=== PATIENT | female | born 1970 | race American Indian/Alaskan Native ===

== ENCOUNTER 2016-05-26 13:21 | Inpatient (IN) | payer OTHER ==
[2016-05-26] MEDS ORDERED: NACL 0.9% 500 ML 500 ML IV ONE (13:46)
[2016-05-26 14:11] LABS: Basophils % (Auto) 0.2 % (0.0-1.8); Hematocrit 40.5 % (30.3-42.9); Hemoglobin 13.1 gm/dl (10.1-14.3); Mean Corpuscular HGB Conc 32 % (30-34); Mean Corpuscular Hemoglobin 26 pg (28-32); Mean Corpuscular Volume 80 fl (79-97); Platelet Count 247 K/mm3 (140-440); Red Blood Count 5.05 M/mm3 (3.65-5.03); Red Cell Distribution Width 15.4 % (13.2-15.2); White Blood Count 12.1 K/mm3 (4.5-11.0)
[2016-05-26 14:21] LABS: INR 1.22 (0.87-1.13)
[2016-05-26 14:37] LABS: Alanine Aminotransferase 13 units/L (7-56); Albumin 3.7 g/dL (3.9-5); Albumin/Globulin Ratio 0.9 %; Alkaline Phosphatase 58 units/L (35-129); Anion Gap 21 mmol/L; BUN/Creatinine Ratio 14.44; Bilirubin,Total 1.4 mg/dL (0.1-1.2); Blood Urea Nitrogen 13 mg/dL (7-17); Calcium 9.3 mg/dL (8.4-10.2); Carbon Dioxide 20 mmol/L (22-30); Chloride 97.9 mmol/L (98-107); Glucose 123 mg/dL (65-100); Potassium 3.6 mmol/L (3.6-5.0); Sodium 135 mmol/L (137-145); Total Protein 7.9 g/dL (6.3-8.2)
[2016-05-26 14:55] LABS: Bacteria,Urine 2+ /HPF (Negative); Bilirubin,Urine NEG (Negative); Blood,Urine SM (Negative); Ketones,Urine 20 mg/dL (Negative); Leukocyte Esterase,Urine TR (Negative); Mucus,Urine 3+ /HPF; Nitrite,Urine NEG (Negative); Urobilinogen,Urine < 2.0 mg/dL (<2.0)
--- NOTE | 2016-05-26 16:06 | XRay Report ---
PORTABLE CHEST INDICATION: Possible sepsis. COMPARISON: 01/09/2012 FINDINGS: Portable, frontal chest radiograph demonstrates limited inspiration with bibasilar horizontal atelectasis. Grossly normal cardiomediastinal silhouette. No large pleural effusions or CHF. Unremarkable bones. CONCLUSION: Hypoinflation and new bibasilar atelectasis. Thank you for the opportunity to participate in this patient's care.
[2016-05-26] MEDS ORDERED: NACL 0.9% 1000 ML 1,000 ML IV ONE ×2 (16:52→22:41)
[2016-05-26] MEDS ORDERED: TYLENOL PO ONE (16:52)
[2016-05-26] MEDS ORDERED: TORADOL IV ONE (17:01)
[2016-05-26] MEDS ORDERED: NACL ONE (17:24)
--- NOTE | 2016-05-26 18:01 | Cat Scan Report ---
FINAL REPORT EXAM: CT ABDOMEN PELVIS W CON HISTORY: abdominal pain TECHNIQUE: CT abdomen and pelvis with intravenous contrast PRIORS: None. FINDINGS: No acute abnormality identified in the lung bases. No focal abnormality identified within the liver parenchyma. The spleen demonstrates normal size and attenuation. No pancreatic abnormalities seen. The kidneys demonstrate symmetric contrast enhancement. No evidence of hydronephrosis. The adrenal glands are unremarkable Abdominal aorta is normal in caliber. No pathologically enlarged lymph nodes are identified. No signs of free fluid or free air There is edematous mucosal thickening the distal ileum and with some mild adjacent inflammatory appearing change Multiple tubular structures noted left adnexa may reflect hydrosalpinx Colon is nondistended. No pericolonic inflammatory change. Urinary bladder is unremarkable. IMPRESSION: Edematous mucosal thickening mid through distal ilium. May reflect inflammatory bowel disease versus enteritis Tubular appearing structures at the left adnexa suspicious for hydrosalpinx. Could be further evaluated with ultrasound
--- NOTE | 2016-05-26 18:41 | Emergency Department Report ---
HPI - General Chief Complaint: Abdominal Pain Time Seen by Provider: 05/26/16 16:49 - HPI HPI: Patient is a 45-year-old female presents for evaluation of abdominal pain. The patient reports 3 days of generalized abdominal pain, 8/10 in severity, sharp in quality, constant since onset. She states that she has also experienced fever and nausea. The patient denies trauma to the abdomen, chest pain, cough, dyspnea, diarrhea, blood in the stool, dark tarry stool, dysuria, hematuria, flank pain, genital discharge, inability to pass flatus. ED Past Medical Hx - Past Medical History Previous Medical History?: Yes Hx Hypertension: No Hx Liver Disease: No Hx Renal Disease: No Hx Seizures: No Hx Asthma: No Hx COPD: No - Surgical History Past Surgical History?: Yes Additional Surgical History: right periorbital repair and right eye surgery - Social History Smoking Status: Current Every Day Smoker Substance Use Type: Alcohol, Marijuana - Medications Home Medications: Home Medications Medication Instructions Recorded Confirmed Last Taken Type Vit No.126/Iron/FA 1 tab PO DAILY 09/09/13 05/26/16 09/07/13 History [Classic Tablet] Vitamin B Complex & Vit C No.4 1 tab PO DAILY 09/09/13 05/26/16 09/07/13 History [Super B Complex] ED Review of Systems ROS: Stated complaint: ABD PAIN Other details as noted in HPI Constitutional: reports fever ENT: denies: throat or neck pain Respiratory: denies: cough, shortness of breath Cardiovascular: denies: chest pain Endocrine: denies unexplained weight loss or gain Gastrointestinal: reports abdominal pain, nausea Genitourinary: denies: dysuria Musculoskeletal: denies: leg swelling Skin: denies: rash Neurological: denies: headache Hematological/Lymphatic: denies: easy bleeding or easy bruising Psych: denies sadness or hopelessness Physical Exam - Physical Exam Vital Signs: Vital Signs 05/26/16 05/26/16 05/26/16 13:40 15:59 17:58 Temperature 102.3 F H 98.2 F 100.5 F H Pulse Rate 134 H 117 H 114 H Respiratory 20 16 16 Rate Blood Pressure 138/96 Blood Pressure 98/57 108/68 [Left] O2 Sat by Pulse 98 100 100 Oximetry Physical Exam: General: well-nourished, well-developed, no acute distress Head: Normocephalic, atraumatic Eyes: normal sclera ENT: Mucous membranes are pale and dry Neck: No neck stiffness, no cervical adenopathy Respiratory: Breath sounds equal bilaterally, no wheezing, rales, or rhonchi Cardio: S1 and S2 present, no murmurs, rubs, gallops, capillary refill is delayed Abdomen: Normoactive bowel sounds, soft abdomen, generalized tenderness to palpation present, no rigidity, no guarding, or rebound tenderness Chest WALL/Back: No tenderness to palpation of the chest wall, no CVA tenderness with percussion Musc: No pitting edema Skin: No rash Neuro: no facial drooping, normal speech Psych: Normal affect ED Course Vital Signs 05/26/16 05/26/16 05/26/16 13:40 15:59 17:58 Temperature 102.3 F H 98.2 F 100.5 F H Pulse Rate 134 H 117 H 114 H Respiratory 20 16 16 Rate Blood Pressure 138/96 Blood Pressure 98/57 108/68 [Left] O2 Sat by Pulse 98 100 100 Oximetry ED Medical Decision Making - Lab Data Result diagrams: 05/26/16 13:57 05/26/16 13:57 - Medical Decision Making The patient was seen and examined by myself. The patient is placed on a wood scaler and continuous pulse ox. On initial evaluation, the patient was found to be in no distress. Evaluation orders are placed. IV access is established and the patient is given 1 L normal saline fluid bolus for treatment of dehydration, and Zofran for nausea, and IV toradol for pain. She is given a tablet of Tylenol for her fever. Lab results revealed leukocytosis, WBC mildly elevated at 12.1, and mildly elevated total bilirubin level. Otherwise labs were grossly unrevealing including negative test. CT scan of the abdomen and pelvis reveals bowel wall thickening from the mid to distal ileum with mild surrounding inflammatory change. The patient is given IV Levaquin and Flagyl for treatment of acute Illeitis. The patient was reevaluated and remains with diffuse generalized tenderness of the abdomen, despite receiving IV Dilaudid. As the patient's pain is intractable, and as the patient is septic, she will be admitted for continued IV antibiotic and close monitoring. The on-call hospitalist service was contacted. They agreed to admit the patient for further treatment and close monitoring. The ED admit order was placed. The patient was admitted in guarded condition. Critical care attestation.: If time is entered above; I have spent that time in minutes in the direct care of this critically ill patient, excluding procedure time. ED Disposition Clinical Impression: Enteritis, Dehydration, Acute generalized abdominal pain Sepsis Qualifiers: Sepsis type: sepsis due to unspecified organism Qualified Code(s): A41.9 - Sepsis, unspecified organism Disposition: OP ADMITTED IP TO THIS HOSP Is pt being admited?: Yes Does the pt Need Aspirin: Yes Condition: Fair Time of Disposition: 22:39
[2016-05-26] MEDS ORDERED: DILAUDID IV ONE (22:41)
[2016-05-26] MEDS ORDERED: LEVAQUIN 750MG/150ML 750 MG/150 ML BAG IV ONE (22:41)
[2016-05-26] MEDS ORDERED: FLAGYL 500 MG/100 ML 500 MG/100 ML BAG IV ONE (23:00)
[2016-05-26] MEDS ORDERED: NACL 0.45% 1000 ML 1,000 ML IV SCH (23:45)
[2016-05-26] MEDS ORDERED: MILK OF MAGNESIA PO PRN (23:49)
[2016-05-26] MEDS ORDERED: DULCOLAX PR PRN (23:49)
--- NOTE | 2016-05-27 00:22 | History and Physical Report ---
History of Present Illness Date of examination: 05/26/16 Date of admission: 05/26/16 23:49 History of present illness: 45-year-old woman with no medical problems comes emergency room with complaints of abdominal pain 5 days. She described the pain as crampy, heavy sensation, constant, all over, intensity 7/10, radiating to the right shoulder. Pain is relief with pain medication, she cannot identify exacerbating factor. She took some milk of magnesia at home for the pain without any relief in the symptoms. Admits to nausea, fever, chills Patient denies chest pain, palpitation, shortness of breath, cough, hematochezia , dysuria, frequency, focal weakness, dysarthria, polydipsia polyuria, hot or cold intolerance, easy bruisability, or rash or bleeding from mucosal membrane, rhinorrhea, epistaxis, earache, tinnitus, blurry vision, eye discharge, anxiety , depression. Other review of systems negative PAST SURGICAL HISTORY: eye surgery SOCIAL HISTORY: Admits to tobacco use, one pack in a week, no alcohol or drugs FAMILY HISTORY: Hypertension Medications and Allergies Allergies Allergy/AdvReac Type Severity Reaction Status Date / Time No Known Allergies Allergy Verified 06/07/16 08:07 Home Medications Medication Instructions Recorded Confirmed Last Taken Type Vit No.126/Iron/FA 1 tab PO DAILY 09/09/13 05/26/16 09/07/13 History [Classic Tablet] Vitamin B Complex & Vit C No.4 1 tab PO DAILY 09/09/13 05/26/16 09/07/13 History [Super B Complex] Bisacodyl [Dulcolax suppos] 10 mg RI QDAY PRN #20 supp.rect 05/30/16 Unknown Rx Docusate Sodium [Colace] 100 mg PO BID #60 capsule 05/30/16 Unknown Rx Levofloxacin [Levaquin TAB] 750 mg PO QDAY #3 tablet 05/30/16 Unknown Rx Magnesium Hydroxide [Milk of 30 ml PO Q4H PRN #20 oral.liqd 05/30/16 Unknown Rx Magnesia] metroNIDAZOLE [Flagyl TAB] 500 mg PO Q8HR #10 tablet 05/30/16 Unknown Rx HYDROcodone/APAP 7.5-325 [[place] 1 each PO Q6HR PRN #20 tablet 06/07/16 Unknown Rx 7.5/325] Active Meds: Active Medications Acetaminophen (Tylenol) 650 mg PO Q4H PRN PRN Reason: Pain MILD(1-3)/Fever >100.5/MORAN Bisacodyl (Dulcolax) 10 mg RI QDAY PRN PRN Reason: Constipation unrelieved by MOM Enoxaparin Sodium (Lovenox) 40 mg SUB-Q QDAY DARY Sodium Chloride (Nacl 0.45% 1000 Ml) 1,000 mls @ 100 mls/hr IV DIRECT DARY Magnesium Hydroxide (Milk Of Magnesia) 30 ml PO Q4H PRN PRN Reason: Constipation Morphine Sulfate (Morphine) 2 mg IV Q4H PRN PRN Reason: Pain, Moderate (4-6) Ondansetron HCl (Zofran) 4 mg IV Q4H PRN PRN Reason: N/V unrelieved by Reglan Exam - Physical Exam Narrative exam: Gen. appearance: Patient lying in bed, no apparent distress HEENT: Normocephalic, atraumatic, pupils equally round and reactive to light, extraocular movement intact, and no sclericterus,. No JVD or thyromegaly or nodule,neck supple, no carotid bruit ,mucous membranes moist, no exudate or erythema Heart: S1, S2, regular rate and rhythm Lungs: Clear to auscultation bilaterally, breathing comfortable Abdomen: Positive bowel sounds,tender right side of the abdomen, nondistended, no organomegaly Extremity: No edema, cyanosis, clubbing Skin: No rash, nodules, warm, dry Neuro: Oriented 3, cranial nerves II-12 intact, speech is fluent, motor and sensory intact - Constitutional Vitals: Temp Pulse Resp BP Pulse Ox 98.4 F 104 H 16 116/71 100 05/26/16 19:24 05/26/16 23:21 05/26/16 23:21 05/26/16 23:21 05/26/16 23:21 Results - Labs CBC & Chem 7: 05/27/16 05:28 05/27/16 05:28 - Imaging and Cardiology CT scan - abdomen: report reviewed CT scan - pelvis: report reviewed Assessment and Plan Enteritis versus inflammatory bowel disease Admit to medicine Place on bowel rest, start IV Levaquin, Flagyl, IV morphine Consult GI, start DVT prophylaxis
[2016-05-27 05:54] LABS: Basophils % (Auto) 0.3 % (0.0-1.8); Eosinophils % (Auto) 0.1 % (0.0-4.3); Hematocrit 36.9 % (30.3-42.9); Hemoglobin 12.1 gm/dl (10.1-14.3); Mean Corpuscular HGB Conc 33 % (30-34); Mean Corpuscular Hemoglobin 26 pg (28-32); Mean Corpuscular Volume 81 fl (79-97); Platelet Count 186 K/mm3 (140-440); Red Blood Count 4.58 M/mm3 (3.65-5.03); Red Cell Distribution Width 15.8 % (13.2-15.2); White Blood Count 9.3 K/mm3 (4.5-11.0)
[2016-05-27 06:10] LABS: Anion Gap 17 mmol/L; BUN/Creatinine Ratio 14.28; Blood Urea Nitrogen 10 mg/dL (7-17); Calcium 8.2 mg/dL (8.4-10.2); Carbon Dioxide 22 mmol/L (22-30); Chloride 104.2 mmol/L (98-107); Glucose 86 mg/dL (65-100); Potassium 3.9 mmol/L (3.6-5.0); Sodium 139 mmol/L (137-145)
--- NOTE | 2016-05-27 07:45 | Admit Criteria Form ---
Admission Criteria Documentation: ABDOMINAL PAIN Clinical Indications for Admission to Inpatient Care (Place 'X' for any and all applicable criteria): Admission is indicated for ANY ONE of the following(1)(2)(3)(4)(5): [ X]I. Inpatient admission required rather than observation care (Also use Abdominal Pain: Observation Care, as appropriate) because of ANY ONE of the following: [X ]a) Severe pain requiring acute inpatient management [ ]b) Identification of etiology/finding that requires inpatient care (eg, aortic dissection, free air) [ ]c) Absent bowel sounds with complete ileus(6) [ ]d) Suspected toxic megacolon [ ]e) Severe electrolyte abnormalities requiring inpatient care [ ]f) High fever or infection requiring inpatient admission as indicated by ANY ONE of following(7)(8): [ ] i) Appropriate outpatient or observational care antimicrobial treatment unavailable, not effective, or not feasible [ ] ii) Documented bacteremia [ ] iii) Temperature > 104.9 degrees F (oral) [ ] iv) T >103.1 F (oral) or < 96.8 F(rectal) that does not respond to all emergency treatment measures [ ]g) Signs of intestinal obstruction [B] [ ]h) Hemodynamic instability [ ]i) IV fluid to replace significant ongoing losses (greater than 3 L/m2 per day) (12)(13) [ ]j) Percutaneous or open drainage (eg, abscess, biliary tract ) procedures [ ]k) Parenteral nutrition regimen that must be implemented on inpatient basis [ X]l) Other condition,treatment or monitoring requiring inpatient admission. [ ]II. Peritoneal signs present [ ]III. Surgery needed that cannot be performed on an ambulatory basis. [ ]IV. Evaluation requires patient to not eat or drink for extended period ( eg, more than 24 hours). [ ]V. Contraindications and/or Inappropriate clinical situations for Observational Care in patients with abdominal pain, when ANY ONE of the following is required: [ ]a) Thorough evaluation is required to prevent catastrophic events due to delays in diagnosing (e.g.Mesenteric ischemia) 1,3 [ ]b) Patient with severe pathology or with chronic symptoms unlikely to improve in the ED stay (3) [ ]. General contraindications and/or Inappropriate clinical situations for Observational Care in patients with abdominal pain, when ANY ONE of the following is required: [ ]a) Prediction of prolongation of LOS based on ANY ONE of the following may be considered as a contraindication for observational care 2, 3, 4, 5, 6, 7, 8, 9, 10, 11 [ ]i) Age > 65 yrs. [ ]ii) Patient arriving by ambulance [ ]iii) Patient with high acuity [ ]iv) Patient requiring vital sign monitoring [ ]v) Patient on IV medication [ ]b) Systolic blood pressures 180mmHg 3,12 [ ]c) Patient with altered mental status including delirium and other alteration of consciousness, (3) [ ]d) Patient whose discharge disposition will be to a [place] [facility] home or rehabilitation home should not be managed in Emergency Department Observation Unit. CMS rule requires 3 days hospital stay before such placement.3,13 [ ]e) Patient with failure to thrive due to broad array of etiologies 3,16,17 [ ]f) Inability to ambulate 3,14 Extended stay beyond goal length of stay may be needed for(2)(3): [ ]a) Persistent abdominal pain with suspected intra-abdominal process [ ]b) Diagnosed condition requiring continued stay (e.g., pancreatitis, complicated diverticulitis) [ ]c) Surgery (e.g., colectomy) The original [facility] content created by [employer] has been revised. The portions of the content which have been revised are identified through the use of italic text or in bold, and [facility] has neither reviewed nor approved the modified material.All other unmodified content is copyright [facility]. Please see references footnoted in the original [facility] edition 2016 Admission Criteria Met: Yes
[2016-05-27] MEDS: FLAGYL 500 MG/100 ML 500 MG/100 ML BAG IV SCH ×3 (08:44→22:31)
[2016-05-27] MEDS: MORPHINE IV PRN ×2 (09:00→18:35)
[2016-05-27] MEDS: TYLENOL PO PRN ×3 (10:38→22:37)
[2016-05-27] MEDS: LEVAQUIN 750MG/150ML 750 MG/150 ML BAG IV SCH (12:19)
[2016-05-27] MEDS: LOVENOX SUB-Q SCH (12:20)
[2016-05-27] MEDS: D5W/0.45% NACL/KCL 10 MEQ 10 MEQ/1,000 ML BAG IV SCH (12:22)
--- NOTE | 2016-05-27 13:57 | Progress Note ---
Assessment and Plan 45-year-old woman with no medical problems comes emergency room with complaints of abdominal pain [address] abdomen/pelvis showed edematous mucosal thickening of mid to distal ilium. Enteritis versus inflammatory bowel disease - cont IV Levaquin, Flagyl - Consulted GI - will place on clear liquid diet Acute diarrhea - now resolved - cont abx for now UTI - cont levaquin, will follow cx DVT prophylaxis - lovenox Subjective Date of service: 05/27/16 Interval history: Pt seen and examined c/o abdominal cramp, no further episode of diarrhea Objective - Exam Narrative Exam: Gen. appearance: Patient lying in bed, no apparent distress HEENT: Normocephalic, atraumatic, pupils equally round and reactive to light Heart: S1, S2, regular rate and rhythm Lungs: Clear to auscultation bilaterally, breathing comfortable Abdomen: Positive bowel sounds,tender right side of the abdomen, nondistended Extremity: No edema, cyanosis, clubbing Skin: No rash, nodules, warm, dry Neuro: Oriented 3, motor and sensory intact - Constitutional Vitals: Vital Signs - 12hr 05/27/16 05/27/16 05/27/16 07:41 10:02 11:58 Temperature 102.9 F H 99.2 F Pulse Rate [ 102 H 106 H Radial] Respiratory 16 18 Rate Blood Pressure 122/74 109/60 [Left Radial Artery] O2 Sat by Pulse 97 100 95 Oximetry - Labs CBC & Chem 7: 05/27/16 05:28 05/27/16 05:28 Labs: Abnormal lab results 05/27/16 05/27/16 Range/Units 05:28 05:28 MCH 26 L (28-32) pg RDW 15.8 H (13.2-15.2) % Lymph % (Auto) 7.6 L (13.4-35.0) % Lymph # 0.7 L (1.2-5.4) K/mm3 Seg Neutrophils % 86.8 H (40.0-70.0) % Seg Neutrophils # 8.1 H (1.8-7.7) K/mm3 Calcium 8.2 L (8.4-10.2) mg/dL
[2016-05-28] MEDS: D5W/0.45% NACL/KCL 10 MEQ 10 MEQ/1,000 ML BAG IV SCH ×2 (03:59→18:32)
[2016-05-28] MEDS: FLAGYL 500 MG/100 ML 500 MG/100 ML BAG IV SCH ×3 (06:34→23:37)
[2016-05-28] MEDS: TYLENOL PO PRN ×2 (06:39→20:29)
[2016-05-28] MEDS: LEVAQUIN 750MG/150ML 750 MG/150 ML BAG IV SCH (10:00)
[2016-05-28] MEDS: LOVENOX SUB-Q SCH (10:01)
[2016-05-28] MEDS: ZOFRAN IV PRN (11:53)
--- NOTE | 2016-05-28 13:26 | Consultation ---
REFERRING PHYSICIAN: Alejandra Russo MD. INDICATION: 1. Abdominal pain. 2. Abnormal CT scan. HISTORY: The patient is a 45-year-old black female presents with abdominal pain. The patient reports abdominal pain has been 5 days ago and described it as a heavy sensation with gas and bloating. The patient reports she was initially felt it was gas and was trying to treat herself. As such, her symptoms are persisted. She reports no rectal bleeding. She reports no significant symptoms like this in the past. The patient reports some nausea and vomiting. The patient subsequently came to the Emergency Room where CT scan showed terminal ileum inflammation. She was admitted and GI consulted. The patient reports her last colonoscopy was 1-[address] Torres because of family history of colon cancer. PAST MEDICAL HISTORY: Eye surgery. MEDICATIONS: See chart. ALLERGIES: No known drug allergies. SOCIAL HISTORY: Reports positive smoker. Social alcohol. FAMILY HISTORY: Negative for colon cancer. REVIEW OF SYSTEMS: GENERAL: Reports mild weakness. HEENT: No visual complaints or tinnitus. PULMONARY: Denies shortness of breath. CARDIOVASCULAR: Denies chest pain. GI: Reports lower abdominal pain. All points of 13-point review of systems otherwise negative. PHYSICAL EXAMINATION: VITAL SIGNS: Temperature of 98.9, pulse 80, respirations 18, and blood pressure 135/82. GENERAL: Fairly nourished female, in no acute distress. HEENT: Pupils equal, round, and reactive to light and accommodation. Extraocular muscles intact. PULMONARY: Clear to auscultation bilaterally. CARDIOVASCULAR: Regular rhythm. Normal S1 and S2. ABDOMEN: Positive bowel sounds. Soft. [id number] lower abdominal discomfort. No guarding. No rebound. SKIN: No obvious rashes. LABORATORY DATA: Pertinent for white count of 9.3, hemoglobin and hematocrit of 12.1 and 36.9, and platelet count of 186,000. Chem-[address] scan on 05/26/2016 showed terminal ileum inflammation. ASSESSMENT AND PLAN: A 45-year-old female with family history of colon cancer now with abdominal pain with inflammation in the terminal ileum. Possibility of irritable bowel disease versus enteritis versus other. PLAN: 1. Continue clear liquid diet. 2. We will review CT scan. 3. Continue antibiotics namely Levaquin and Flagyl as ordered. 4. Advance diet as tolerated. 5. If the patient is stable and tolerating soft diet over the next couple of days can discharged with plans for the patient to see Dr. Torres as an outpatient for repeat colonoscopy. 6. If symptoms persist, we will consider inpatient colonoscopy. 7. We will follow. JOB# [id number] CAB/NTS
--- NOTE | 2016-05-28 21:19 | Progress Note ---
Assessment and Plan Assessment and plan: 45-year-old woman with no medical problems comes emergency room with complaints of abdominal pain [address] abdomen/pelvis showed edematous mucosal thickening of mid to distal ilium. 1. Enteritis versus inflammatory bowel disease CT abdomen/pelvis showed edematous mucosal thickening of mid to distal ilium Started on Levaquin, Flagyl GI consulted - no GI procedure planned at this time; she had a colonoscopy approximately one year ago; recommended follow-up with her slp for possible repeat colonoscopy 2. Diarrhea Now resolved 3. Sepsis/UTI Levaquin to treat both #1/#3 4. DVT prophylaxis Lovenox History Interval history: no diarrhea, but c/o diffuse abdominal pain Hospitalist Physical - Constitutional Vitals: Temp Pulse Resp BP Pulse Ox 99.1 F 92 H 20 111/73 97 05/28/16 15:46 05/28/16 15:46 05/28/16 20:29 05/28/16 15:46 05/28/16 19:52 General appearance: Present: no acute distress, obese - EENT Eyes: Present: PERRL, EOM intact. Absent: scleral icterus, conjunctival injection - Neck Neck: Present: supple, normal ROM. Absent: masses or JVD - Respiratory Respiratory effort: normal Respiratory: bilateral: CTA, negative: rhonchi, wheezing - Cardiovascular Rhythm: regular Heart Sounds: Present: S1 & S2. Absent: systolic murmur - Extremities Extremities: no ischemia - Abdominal General gastrointestinal: soft, tender, non-distended, normal bowel sounds Localized gastrointestinal: tender: epigastric periumbilical, suprapubic - Psychiatric Psychiatric: cooperative - Neurologic Neurologic: CNII-XII intact, no focal deficits Results - Labs CBC & Chem 7: 05/27/16 05:28 05/27/16 05:28 Labs: Laboratory Last Values WBC 9.3 K/mm3 (4.5-11.0) 05/27/16 05:28 RBC 4.58 M/mm3 (3.65-5.03) 05/27/16 05:28 Hgb 12.1 gm/dl (10.1-14.3) 05/27/16 05:28 Hct 36.9 % (30.3-42.9) 05/27/16 05:28 MCV 81 fl (79-97) 05/27/16 05:28 MCH 26 pg (28-32) L 05/27/16 05:28 MCHC 33 % (30-34) 05/27/16 05:28 RDW 15.8 % (13.2-15.2) H 05/27/16 05:28 Plt Count 186 K/mm3 (140-440) 05/27/16 05:28 Lymph % (Auto) 7.6 % (13.4-35.0) L 05/27/16 05:28 Bryan % (Auto) 5.2 % (0.0-7.3) 05/27/16 05:28 Eos % (Auto) 0.1 % (0.0-4.3) 05/27/16 05:28 Baso % (Auto) 0.3 % (0.0-1.8) 05/27/16 05:28 Lymph # 0.7 K/mm3 (1.2-5.4) L 05/27/16 05:28 Bryan # 0.5 K/mm3 (0.0-0.8) 05/27/16 05:28 Eos # 0.0 K/mm3 (0.0-0.4) 05/27/16 05:28 Baso # 0.0 K/mm3 (0.0-0.1) 05/27/16 05:28 Seg Neutrophils % 86.8 % (40.0-70.0) H 05/27/16 05:28 Seg Neutrophils # 8.1 K/mm3 (1.8-7.7) H 05/27/16 05:28 PT 15.3 Sec. (12.2-14.9) H 05/26/16 13:57 INR 1.22 (0.87-1.13) H 05/26/16 13:57 VBG pH 7.464 (7.320-7.420) H 05/26/16 13:57 Sodium 139 mmol/L (137-145) 05/27/16 05:28 Potassium 3.9 mmol/L (3.6-5.0) 05/27/16 05:28 Chloride 104.2 mmol/L (98-107) 05/27/16 05:28 Carbon Dioxide 22 mmol/L (22-30) 05/27/16 05:28 Anion Gap 17 mmol/L 05/27/16 05:28 BUN 10 mg/dL (7-17) 05/27/16 05:28 Creatinine 0.7 mg/dL (0.7-1.2) 05/27/16 05:28 Estimated GFR > 60 ml/min 05/27/16 05:28 BUN/Creatinine Ratio 14.28 % 05/27/16 05:28 Glucose 86 mg/dL (65-100) 05/27/16 05:28 Lactic Acid 1.4 mmol/L (0.7-2.0) 05/26/16 16:36 Calcium 8.2 mg/dL (8.4-10.2) L 05/27/16 05:28 Total Bilirubin 1.4 mg/dL (0.1-1.2) H 05/26/16 13:57 AST 13 units/L (5-40) 05/26/16 13:57 ALT 13 units/L (7-56) 05/26/16 13:57 Alkaline Phosphatase 58 units/L (35-129) 05/26/16 13:57 Total Protein 7.9 g/dL (6.3-8.2) 05/26/16 13:57 Albumin 3.7 g/dL (3.9-5) L 05/26/16 13:57 Albumin/Globulin Ratio 0.9 % 05/26/16 13:57 Urine Color Sammi (Yellow) 05/26/16 14:16 Urine Turbidity Cloudy (Clear) 05/26/16 14:16 Urine pH 5.0 (5.0-7.0) 05/26/16 14:16 Ur Specific [place] 1.029 (1.003-1.030) 05/26/16 14:16 Urine Protein 100 mg/dl mg/dL (Negative) 05/26/16 14:16 Urine Glucose (UA) Neg mg/dL (Negative) 05/26/16 14:16 Urine Ketones 20 mg/dL (Negative) 05/26/16 14:16 Urine Blood Sm (Negative) 05/26/16 14:16 Urine Nitrite Neg (Negative) 05/26/16 14:16 Urine Bilirubin Neg (Negative) 05/26/16 14:16 Urine Urobilinogen < 2.0 mg/dL (<2.0) 05/26/16 14:16 Ur Leukocyte Esterase Tr (Negative) 05/26/16 14:16 Urine WBC (Auto) 61.0 /HPF (0.0-6.0) H 05/26/16 14:16 Urine RBC (Auto) 19.0 /HPF (0.0-6.0) 05/26/16 14:16 U Epithel Cells (Auto) 30.0 /HPF (0-13.0) H 05/26/16 14:16 Urine Bacteria (Auto) 2+ /HPF (Negative) 05/26/16 14:16 Ur Transition Epith Cell 2 /HPF 05/26/16 14:16 Urine Mucus 3+ /HPF 05/26/16 14:16 Urine HCG, Qual Negative (Negative) 05/26/16 14:16
[2016-05-29] MEDS: TYLENOL PO PRN ×2 (01:34→06:09)
[2016-05-29] MEDS: FLAGYL 500 MG/100 ML 500 MG/100 ML BAG IV SCH ×3 (06:06→23:42)
[2016-05-29] MEDS: LEVAQUIN 750MG/150ML 750 MG/150 ML BAG IV SCH (09:48)
[2016-05-29] MEDS: LOVENOX SUB-Q SCH (09:48)
--- NOTE | 2016-05-29 12:01 | Ultrasound Report ---
ULTRASOUND PELVIC COMPLETE ULTRASOUND TRANSVAGINAL HISTORY: Left ovarian mass. TECHNIQUE: Transabdominal and transvaginal ultrasound with color and spectral doppler interrogation. The uterus measures 7.1 x 3.3 x 4.1 cm. No uterine mass is appreciated. The endometrium measures 11 mm. The right ovary is unremarkable and measures 2.6 x 1.3 x 3.0 cm. The left ovary measures 2.9 x 1.8 x 2.9 cm. There is a tubular cystic structure adjacent to the left ovary measuring up to 6 x 2 x 3 cm which probably represents fluid in the left fallopian tubule. No pelvic fluid collection. IMPRESSION: Findings suggestive of left hydrosalpinx.
--- NOTE | 2016-05-29 13:14 | Gastroenterology Progress Note ---
Assessment and Plan GI: presented w/ abdominal pain w/ ct showing T.I. thickening - pt improving, advance diet to soft - if tolerating po ok to d/c in am - pt will probably need colonoscopy with T.I> eval as outpt, will follow up primary GI Dr. Ryan - will follow Subjective Date of service: 05/29/16 Interval history: - reports feeling better, tolerating po Objective - Constitutional Vitals: Temp Pulse Resp BP Pulse Ox 98.4 F 80 18 107/55 97 05/29/16 08:00 05/29/16 08:00 05/29/16 08:00 05/29/16 08:00 05/29/16 08:00 General appearance: no acute distress - Respiratory Respiratory: bilateral: CTA - Cardiovascular Rhythm: regular Heart Sounds: Present: S1 & S2 - Gastrointestinal General gastrointestinal: Present: soft, non-tender, non-distended - Labs CBC & Chem 7: 05/27/16 05:28 05/27/16 05:28 Labs: Laboratory Results - last 24 hr 05/29/16 04:22 C-Reactive Protein 19.20 H
--- NOTE | 2016-05-29 19:39 | Progress Note ---
Assessment and Plan Assessment and plan: 45-year-old woman with no medical problems comes emergency room with complaints of abdominal pain 5 days 1. Enteritis versus inflammatory bowel disease CT abdomen/pelvis showed edematous mucosal thickening of mid to distal ilium Started on Levaquin, Flagyl GI consulted - no GI procedure planned at this time; she had a colonoscopy approximately one year ago; recommended follow-up with her powder blender for possible repeat colonoscopy 2. Diarrhea Now resolved 3. Abdominal pain Transvaginal ultrasound findings suggestive of left hydrosalpinx [facility] follow-up advised 4. Sepsis/UTI Levaquin to treat both #1/#3 5. DVT prophylaxis Lovenox History Interval history: feeling better, no diarhrrea, abd pain improved Hospitalist Physical - Constitutional Vitals: Temp Pulse Resp BP Pulse Ox 99.0 F 79 18 120/73 99 05/29/16 15:00 05/29/16 15:00 05/29/16 15:00 05/29/16 15:00 05/29/16 15:00 General appearance: Present: no acute distress. Absent: obese - EENT Eyes: Present: PERRL, EOM intact - Neck Neck: Present: supple, normal ROM. Absent: masses or JVD - Respiratory Respiratory effort: normal Respiratory: bilateral: CTA, negative: rhonchi, wheezing - Cardiovascular Rhythm: regular Heart Sounds: Present: S1 & S2. Absent: systolic murmur - Extremities Extremities: no ischemia - Abdominal General gastrointestinal: soft, non-tender, non-distended, normal bowel sounds - Psychiatric Psychiatric: cooperative - Neurologic Neurologic: CNII-XII intact, no focal deficits Results - Labs CBC & Chem 7: 05/27/16 05:28 05/27/16 05:28 Labs: Laboratory Last Values WBC 9.3 K/mm3 (4.5-11.0) 05/27/16 05:28 RBC 4.58 M/mm3 (3.65-5.03) 05/27/16 05:28 Hgb 12.1 gm/dl (10.1-14.3) 05/27/16 05:28 Hct 36.9 % (30.3-42.9) 05/27/16 05:28 MCV 81 fl (79-97) 05/27/16 05:28 MCH 26 pg (28-32) L 05/27/16 05:28 MCHC 33 % (30-34) 05/27/16 05:28 RDW 15.8 % (13.2-15.2) H 05/27/16 05:28 Plt Count 186 K/mm3 (140-440) 05/27/16 05:28 Lymph % (Auto) 7.6 % (13.4-35.0) L 05/27/16 05:28 [place] % (Auto) 5.2 % (0.0-7.3) 05/27/16 05:28 Eos % (Auto) 0.1 % (0.0-4.3) 05/27/16 05:28 Baso % (Auto) 0.3 % (0.0-1.8) 05/27/16 05:28 Lymph # 0.7 K/mm3 (1.2-5.4) L 05/27/16 05:28 [place] # 0.5 K/mm3 (0.0-0.8) 05/27/16 05:28 Eos # 0.0 K/mm3 (0.0-0.4) 05/27/16 05:28 Baso # 0.0 K/mm3 (0.0-0.1) 05/27/16 05:28 Seg Neutrophils % 86.8 % (40.0-70.0) H 05/27/16 05:28 Seg Neutrophils # 8.1 K/mm3 (1.8-7.7) H 05/27/16 05:28 PT 15.3 Sec. (12.2-14.9) H 05/26/16 13:57 INR 1.22 (0.87-1.13) H 05/26/16 13:57 VBG pH 7.464 (7.320-7.420) H 05/26/16 13:57 Sodium 139 mmol/L (137-145) 05/27/16 05:28 Potassium 3.9 mmol/L (3.6-5.0) 05/27/16 05:28 Chloride 104.2 mmol/L (98-107) 05/27/16 05:28 Carbon Dioxide 22 mmol/L (22-30) 05/27/16 05:28 Anion Gap 17 mmol/L 05/27/16 05:28 BUN 10 mg/dL (7-17) 05/27/16 05:28 Creatinine 0.7 mg/dL (0.7-1.2) 05/27/16 05:28 Estimated GFR > 60 ml/min 05/27/16 05:28 BUN/Creatinine Ratio 14.28 % 05/27/16 05:28 Glucose 86 mg/dL (65-100) 05/27/16 05:28 Lactic Acid 1.4 mmol/L (0.7-2.0) 05/26/16 16:36 Calcium 8.2 mg/dL (8.4-10.2) L 05/27/16 05:28 Total Bilirubin 1.4 mg/dL (0.1-1.2) H 05/26/16 13:57 AST 13 units/L (5-40) 05/26/16 13:57 ALT 13 units/L (7-56) 05/26/16 13:57 Alkaline Phosphatase 58 units/L (35-129) 05/26/16 13:57 C-Reactive Protein 19.20 mg/dL (0.00-1.30) H 05/29/16 04:22 Total Protein 7.9 g/dL (6.3-8.2) 05/26/16 13:57 Albumin 3.7 g/dL (3.9-5) L 05/26/16 13:57 Albumin/Globulin Ratio 0.9 % 05/26/16 13:57 Urine Color [place] (Yellow) 05/26/16 14:16 Urine Turbidity Cloudy (Clear) 05/26/16 14:16 Urine pH 5.0 (5.0-7.0) 05/26/16 14:16 Ur Specific [place] 1.029 (1.003-1.030) 05/26/16 14:16 Urine Protein 100 mg/dl mg/dL (Negative) 05/26/16 14:16 Urine Glucose (UA) Neg mg/dL (Negative) 05/26/16 14:16 Urine Ketones 20 mg/dL (Negative) 05/26/16 14:16 Urine Blood Sm (Negative) 05/26/16 14:16 Urine Nitrite Neg (Negative) 05/26/16 14:16 Urine Bilirubin Neg (Negative) 05/26/16 14:16 Urine Urobilinogen < 2.0 mg/dL (<2.0) 05/26/16 14:16 Ur Leukocyte Esterase Tr (Negative) 05/26/16 14:16 Urine WBC (Auto) 61.0 /HPF (0.0-6.0) H 05/26/16 14:16 Urine RBC (Auto) 19.0 /HPF (0.0-6.0) 05/26/16 14:16 U Epithel Cells (Auto) 30.0 /HPF (0-13.0) H 05/26/16 14:16 Urine Bacteria (Auto) 2+ /HPF (Negative) 05/26/16 14:16 Ur Transition Epith Cell 2 /HPF 05/26/16 14:16 Urine Mucus 3+ /HPF 05/26/16 14:16 Urine HCG, Qual Negative (Negative) 05/26/16 14:16
[2016-05-29] MEDS: ZOFRAN IV PRN (23:41)
[2016-05-30] MEDS: FLAGYL 500 MG/100 ML 500 MG/100 ML BAG IV SCH ×2 (07:26→13:45)
[2016-05-30] MEDS: D5W/0.45% NACL/KCL 10 MEQ 10 MEQ/1,000 ML BAG IV SCH (08:34)
[2016-05-30] MEDS: LEVAQUIN 750MG/150ML 750 MG/150 ML BAG IV SCH (09:24)
[2016-05-30] MEDS: LOVENOX SUB-Q SCH (09:25)
--- NOTE | 2016-05-30 09:45 | Discharge Summary ---
Providers - Providers Date of Admission: 05/26/16 23:49 Date of discharge: 05/30/16 Attending physician: AIDA GROSSMAN CONSULTS: GI Primary care physician: SARAH URBAN MD Hospitalization Reason for admission: abd pain Condition: Stable Pertinent studies: CXR CT abd/pelvis Transvaginal US Hospital course: 45-year-old woman with no medical problems comes emergency room with complaints of abdominal pain [address] abdomen showed edematous mucosal thickening of ilium and was also diagnosed with UTI. Started on appropriate antibiotics and improved. Also transvaginal ultrasound obtained and revealed findings suggestive of left hydrosalpinx for which she was advised to follow with [employer]. Discharged in stable condition and she will finish antibiotic course. Discharge diagnoses: 1. Enteritis 2. Diarrhea 3. Abdominal pain 4. Sepsis/UTI Disposition: DISCHARGED TO HOME OR SELFCARE Time spent for discharge: 35 min Core Measure Documentation - Palliative Care Palliative Care/ Comfort Measures: Not Applicable - Core Measures Any of the following diagnoses?: none Exam - Physical Exam Narrative exam: Patient seen and examined: - Constitutional Vitals: Temp Pulse Resp BP Pulse Ox 97.1 F L 71 16 169/65 96 05/30/16 07:00 05/30/16 07:00 05/30/16 07:00 05/30/16 07:00 05/30/16 07:00 General appearance: Present: no acute distress, obese - EENT Eyes: Present: PERRL, EOM intact. Absent: scleral icterus, conjunctival injection - Neck Neck: Present: supple, normal ROM. Absent: masses or JVD - Respiratory Respiratory effort: normal Respiratory: bilateral: CTA, negative: rhonchi, wheezing - Cardiovascular Rhythm: regular Heart Sounds: Present: S1 & S2. Absent: systolic murmur - Extremities Extremities: no ischemia, No edema - Abdominal General gastrointestinal: Present: soft, non-tender, non-distended, normal bowel sounds - Integumentary Integumentary: Present: warm, dry. Absent: jaundice, rash - Musculoskeletal Musculoskeletal: strength equal bilaterally - Psychiatric Psychiatric: cooperative - Neurologic Neurologic: CNII-XII intact, no focal deficits Plan Activity: advance as tolerated Diet: low cholesterol, low salt Follow up with: PRIMARY MD WILMAR [Primary Care Provider] - 7 Days ROCAEL ANN MD [Staff Physician] - 7 Days Prescriptions: Bisacodyl [Dulcolax suppos] 10 mg [place] QDAY PRN #20 supp.rect PRN Reason: Constipation unrelieved by MOM Docusate Sodium [Colace] 100 mg PO BID #60 capsule Levofloxacin [Levaquin TAB] 750 mg PO QDAY #3 tablet Magnesium Hydroxide [Milk of Magnesia] 30 ml PO Q4H PRN #20 oral.liqd PRN Reason: Constipation metroNIDAZOLE [Flagyl TAB] 500 mg PO Q8HR #10 tablet
--- NOTE | 2016-05-30 11:19 | Query-Infection ---
"Dear Date:_05/30/16 Direct Care Specialist/CDS:_Shana Schroeder Phone#:[phone] Exercise your independent professional judgment when responding to this query. Questions asked do not imply a particular answer is desired or expected. We greatly appreciate your clarification on this issue. Clinical Documentation States: 45-year-old woman with no medical problems comes emergency room with complaints of abdominal pain 5 days. She described the pain as crampy, heavy sensation, constant, all over, intensity 7/10, radiating to the right shoulder. Pain is relief with pain medication, she cannot identify exacerbating factor. She took some milk of magnesia at home for the pain without any relief in the symptoms. Admits to nausea, fever, chills Clinical findings show: (please check applicable parameters) Infection, known /suspected, with some of the following indicators; Specify the infection: UTI WBC: 12.1 Temp: 102.3 HR: 134 RR: 20 3 General parameters [+] Fever (core temp >38.30C or 100.40F) [ ] Hypothermia (core temp <36C) [+] Heart rate >90 bpm [+] Tachypnea: >20 bpm or pCO2 < 32 mmHg [ ] Altered mental status [ ] Significant edema / +ve fluid balance (>20 ml/kg 24 h) [ ] Hyperglycemia (Bl. glucose >110 mg/dl) w/o diabetes Inflammatory parameters [+] Leukocytosis (white blood cell count >12,000/l) [ ] Leukopenia (white blood cell count <4,000/l) [ ] Bandemia (immature WBC > 10%) [ ] Leucocyte Left Shift [ ] Plasma procalcitonin>2 SD above the normal value Hemodynamic and tissue perfusion parameters [ ] Arterial hypotension(SBP <90 mmHg, MAP <70 mmHg,or a SBP drop >40 mmHg in adults) [ ] Hyperlactatemia (>3 mmol/l) [ ] Anion Gap (> 11mEG/l) [ ] Decreased capillary refill or mottling Organ dysfunction parameters [ ] Arterial hypoxemia (PaO2/FIO2 <300) [ ] Creatinine increase =0.5 mg/dl [ ] Acute oliguria (urine output <0.5 ml | kg |h or 45 mM/l for at least 2 hrs) [ ] Coagulation abnormalities (INR >1.5 or activated partial thromboplastin time >60 s) [ ] Ileus (absent toyin wel sounds) [ ] Thrombocytopenia (platelet count <100,000/l) [ ] Hyperbilirubinemia (plasma total bilirubin >4 mg/dl) According to the clinical indications above, can Bacteremia be further specified? If so, please indicate below and in your Progress Notes and/ or Discharge Summary. Indicate if the condition was present on admission. PHYSICIAN RESPONSE: [x ] Sepsis [ ] Severe Sepsis [ ] Septic Shock [ ] Septicemia [ ] Sepsis now resolved [ ] SIRS due to non-infectious cause with organ dysfunction [ ] SIRS due to non-infectious cause without organ dysfunction [ ] Other: [ ] Comment/Explanation: Present on Admission: [x ] Yes (Y) [ ] Clinically undeterminable (W) [ ] No (N) [ ] Ruled Out Please also document response in your Progress Notes and/or Discharge Summary and indicate if the condition was present on admission Notes: SIRS/ SIRS WITH ORGAN DYSFUNCTION Systemic inflammatory response syndrome (SIRS) generally refers to the systemic response to trauma/salazar or other insult such as Acute Myocardial Infarction, Acute Pancreatitis, and Major Surgery with symptoms including fever, tachycardia , tachypnea, and leukocytosis (1). BACTEREMIA Presence of viable bacteria in the circulating blood (2). This term is reserved for patients that do not manifest above SIRS response. SEPTICEMIA Generally refers to a systemic disease associated with the presence of pathological microorganisms or toxins in the blood, which can include bacteria, viruses, fungi or other organisms (1). SEPSIS Generally refers to SIRS due infection (1). SEVERE SEPSIS Generally refers to sepsis associated with acute organ dysfunction (1). SEPTIC SHOCK Generally refers to circulatory failure associated with severe sepsis (2), and defined as hypotension or hypoperfusion despite adequate fluid resuscitation (1 hour) (3). REFERENCES: 1. [employer]/Society of Critical Care Medicine Consensus Conference. Definitions for sepsis and organ failure and guidelines for the use of innovative therapies in sepsis. Critical Care Med 1992;20:864 - 74. 2. Robinson paz MM, Elle MP, Pierce IKE, Femi E, Luis D, Conor D, Pe[place] J, [place] SM , Lane JL, Anne G; International Sepsis Definitions Conference. 2001 SCCM/ESICM/ACCP/ATS/SIS International Sepsis Definitions Conference. Intensive Care Med. 2002;29(4):530-8. Epub 2002May 03. Review. PubMed PMID:[id number] 3. ICD-9-CM Official Guidelines for Coding and Reporting 4. Medscape Drugs, Diseases and Procedures references 5. Harrisons Textbook of Internal Medicine. 18th Edition MTDD"
--- NOTE | 2016-05-30 13:22 | Gastroenterology Progress Note ---
Assessment and Plan GI: t.i. thickening with abdominal pain - diet as tolerated - pt to see Dr. Ryan as outpt for possible repeat colon - ok to d/c, will sign off Subjective Date of service: 05/30/16 Interval history: - no problems overnight Objective - Constitutional Vitals: Temp Pulse Resp BP Pulse Ox 97.1 F L 71 16 169/65 96 05/30/16 07:00 05/30/16 07:00 05/30/16 07:00 05/30/16 07:00 05/30/16 07:00 General appearance: no acute distress - Respiratory Respiratory: bilateral: CTA - Cardiovascular Rhythm: regular Heart Sounds: Present: S1 & S2 - Gastrointestinal General gastrointestinal: Present: soft, non-tender, non-distended - Labs CBC & Chem 7: 05/27/16 05:28 05/27/16 05:28
[2016-05-30] MEDS ORDERED: PNEUMOVAX 23 IM ONE (14:00)
[2016-05-30 15:53] VITALS: BP 105/69
== END 2016-05-30 17:10 | disposition home or self-care (01) | DRG 872 ==
LOC: ED 13:21 → 3A 23:49
PROVIDERS: ADMIT Internal Medicine; ATTEND Internal Medicine
DX: A41.9 Sepsis, unspecified organism (principal); N39.0 Urinary tract infection, site not specified; R10.9 Unspecified abdominal pain; K52.9 Noninfective gastroenteritis and colitis, unspecified; F17.200 Nicotine dependence, unspecified, uncomplicated; E86.0 Dehydration; Z82.49 Family history of ischemic heart disease and other diseases of the circulatory system
CPT/HCPCS: 36415; 71010; 74177; 76830; 76856; 80048; 80053; 81001; 81025; 82140; 82805; 85007; 85025; 85610; 86140; 87040; 87045; 87086; 87493; 90732; 93005; 93010; 96361; 96365; 96375; J1170; J1650; J1885; J1956; J2270; J2405; J7030; J7040; Q9967

== ENCOUNTER 2016-06-07 07:28 | Emergency (ER) | payer OTHER ==
[2016-06-07] MEDS ORDERED: NACL 0.9% 1000 ML 1,000 ML ONE (07:53)
[2016-06-07 08:40] LABS: Basophils % (Auto) 1.2 % (0.0-1.8); Eosinophils % (Auto) 2.3 % (0.0-4.3); Hematocrit 39.5 % (30.3-42.9); Hemoglobin 12.7 gm/dl (10.1-14.3); Mean Corpuscular HGB Conc 32 % (30-34); Mean Corpuscular Volume 81 fl (79-97); Platelet Count 492 K/mm3 (140-440); Red Cell Distribution Width 16.3 % (13.2-15.2)
[2016-06-07 08:44] LABS: Mean Corpuscular Hemoglobin 26 pg (28-32)
[2016-06-07 08:49] LABS: Alanine Aminotransferase 33 units/L (7-56); Albumin 3.5 g/dL (3.9-5); Albumin/Globulin Ratio 0.9 %; Anion Gap 14 mmol/L; BUN/Creatinine Ratio 12.85; Blood Urea Nitrogen 9 mg/dL (7-17); Calcium 9.3 mg/dL (8.4-10.2); Carbon Dioxide 25 mmol/L (22-30); Chloride 102.6 mmol/L (98-107); Glucose 86 mg/dL (65-100); Lipase 83 units/L (13-60); Potassium 4.3 mmol/L (3.6-5.0); Sodium 137 mmol/L (137-145); Total Protein 7.2 g/dL (6.3-8.2)
[2016-06-07 09:40] LABS: Bilirubin,Urine NEG (Negative); Blood,Urine SM (Negative); Ketones,Urine NEG (Negative); Leukocyte Esterase,Urine NEG (Negative); Mucus,Urine FEW /HPF; Nitrite,Urine NEG (Negative); Protein,Urine <15 mg/dL mg/dL (Negative); Urobilinogen,Urine < 2.0 mg/dL (<2.0); WBC,Urine < 1.0 /HPF (0.0-6.0)
[2016-06-07 10:54] LABS: Alkaline Phosphatase 50 units/L (35-129)
--- NOTE | 2016-06-07 11:56 | Emergency Department Report ---
ED Abdominal Pain HPI - General Chief Complaint: Abdominal Pain Stated Complaint: LEFT ABD PAIN Time Seen by Provider: 06/07/16 11:19 Source: patient Mode of arrival: Ambulatory Limitations: No Limitations - History of Present Illness Initial Comments: Patient states she woke up in the middle of night with recurrent left lower quadrant/pelvic pain. He stated on her recent hospitalization she had pain like this. She had an ultrasound which demonstrated a hydrosalpinx. She was referred to her electrical experimental mechanic. She now has a follow-up appointment on the fourth. She's had no fever or chills. She denies any nausea or vomiting. She has been on metronidazole and Levaquin. She also had a CT that showed terminal ileum thickening. She was referred to gastroenterology. She does have a follow -up appointment for that. She denies diarrhea. The pain is currently resolved. Complaint: abdominal pain -: Gradual Location: LLQ Radiation: none Migration to: no migration Severity: moderate Consistency: intermittent, now resolved Improves With: nothing Worsens With: nothing Associated Symptoms: denies other symptoms - Related Data Home Medications Medication Instructions Recorded Confirmed Last Taken Vit No.126/Iron/FA 1 tab PO DAILY 09/09/13 05/26/16 09/07/13 [Classic Tablet] Vitamin B Complex & Vit C No.4 1 tab PO DAILY 09/09/13 05/26/16 09/07/13 [Super B Complex] Previous Rx's Medication Instructions Recorded Last Taken Type Bisacodyl [Dulcolax suppos] 10 mg [place] QDAY PRN #20 supp.rect 05/30/16 Unknown Rx Docusate Sodium [Colace] 100 mg PO BID #60 capsule 05/30/16 Unknown Rx Levofloxacin [Levaquin TAB] 750 mg PO QDAY #3 tablet 05/30/16 Unknown Rx Magnesium Hydroxide [Milk of 30 ml PO Q4H PRN #20 oral.liqd 05/30/16 Unknown Rx Magnesia] metroNIDAZOLE [Flagyl TAB] 500 mg PO Q8HR #10 tablet 05/30/16 Unknown Rx HYDROcodone/APAP 7.5-325 [[place] 1 each PO Q6HR PRN #20 tablet 06/07/16 Unknown Rx 7.5/325] Allergies Allergy/AdvReac Type Severity Reaction Status Date / Time No Known Allergies Allergy Verified 06/07/16 08:07 ED Review of Systems ROS: Stated complaint: LEFT ABD PAIN Other details as noted in HPI Constitutional: denies: chills, fever Eyes: denies: eye pain, eye discharge, vision change ENT: denies: ear pain, throat pain Respiratory: denies: cough, shortness of breath, wheezing Cardiovascular: denies: chest pain, palpitations Endocrine: no symptoms reported Gastrointestinal: abdominal pain. denies: nausea, diarrhea Genitourinary: denies: urgency, dysuria, discharge Musculoskeletal: denies: back pain, joint swelling, arthralgia Skin: denies: rash, lesions Neurological: denies: headache, weakness, paresthesias Psychiatric: denies: anxiety, depression Hematological/Lymphatic: denies: easy bleeding, easy bruising ED Past Medical Hx - Past Medical History Previous Medical History?: No Hx Hypertension: No Hx Liver Disease: No Hx Renal Disease: No Hx Seizures: No Hx Asthma: No Hx COPD: No - Surgical History Additional Surgical History: right periorbital repair and right eye surgery - Social History Smoking Status: Current Some Day Smoker Substance Use Type: None - Medications Home Medications: Home Medications Medication Instructions Recorded Confirmed Last Taken Type Vit No.126/Iron/FA 1 tab PO DAILY 09/09/13 05/26/16 09/07/13 History [Classic Tablet] Vitamin B Complex & Vit C No.4 1 tab PO DAILY 09/09/13 05/26/16 09/07/13 History [Super B Complex] Bisacodyl [Dulcolax suppos] 10 mg MD QDAY PRN #20 supp.rect 05/30/16 Unknown Rx Docusate Sodium [Colace] 100 mg PO BID #60 capsule 05/30/16 Unknown Rx Levofloxacin [Levaquin TAB] 750 mg PO QDAY #3 tablet 05/30/16 Unknown Rx Magnesium Hydroxide [Milk of 30 ml PO Q4H PRN #20 oral.liqd 05/30/16 Unknown Rx Magnesia] metroNIDAZOLE [Flagyl TAB] 500 mg PO Q8HR #10 tablet 05/30/16 Unknown Rx HYDROcodone/APAP 7.5-325 [[place] 1 each PO Q6HR PRN #20 tablet 06/07/16 Unknown Rx 7.5/325] ED Physical Exam - General Limitations: No Limitations General appearance: alert, in no apparent distress - Head Head exam: Present: atraumatic, normocephalic - Eye Eye exam: Present: normal appearance, PERRL, EOMI. Absent: scleral icterus - ENT ENT exam: Present: normal exam, mucous membranes moist - Neck Neck exam: Present: normal inspection - Respiratory Respiratory exam: Present: normal lung sounds bilaterally. Absent: respiratory distress - Cardiovascular Cardiovascular Exam: Present: regular rate, normal rhythm. Absent: systolic murmur, diastolic murmur, rubs, gallop - GI/Abdominal GI/Abdominal exam: Present: soft, normal bowel sounds. Absent: distended, tenderness, guarding, rebound, rigid - Extremities Exam Extremities exam: Present: normal inspection - Back Exam Back exam: Present: normal inspection - Neurological Exam Neurological exam: Present: alert, oriented X3, CN II-XII intact. Absent: motor sensory deficit - Psychiatric Psychiatric exam: Present: normal affect, normal mood - Skin Skin exam: Present: warm, dry, intact, normal color. Absent: rash ED Course Vital Signs 06/07/16 06/07/16 06/07/16 08:08 11:02 11:08 Temperature 98.6 F Pulse Rate 67 Respiratory 17 18 Rate Blood Pressure 123/81 O2 Sat by Pulse 100 100 100 Oximetry ED Medical Decision Making - Lab Data Result diagrams: 06/07/16 08:17 06/07/16 08:17 Laboratory Results - last 24 hr 06/07/16 06/07/16 06/07/16 08:17 08:17 08:17 WBC 6.0 RBC 4.90 Hgb 12.7 Hct 39.5 MCV 81 MCH 26 L MCHC 32 RDW 16.3 H Plt Count 492 H Lymph % (Auto) 37.8 H [place] % (Auto) 8.0 H Eos % (Auto) 2.3 Baso % (Auto) 1.2 Lymph # 2.3 [place] # 0.5 Eos # 0.1 Baso # 0.1 Seg Neutrophils % 50.7 Seg Neutrophils # 3.1 Sodium 137 Potassium 4.3 Chloride 102.6 Carbon Dioxide 25 Anion Gap 14 BUN 9 Creatinine 0.7 Estimated GFR > 60 BUN/Creatinine Ratio 12.85 Glucose 86 Calcium 9.3 Total Bilirubin 0.30 AST 23 ALT 33 Alkaline Phosphatase 50 Total Protein 7.2 Albumin 3.5 L Albumin/Globulin Ratio 0.9 Lipase 83 H HCG, Qual Negative Urine Color Urine Turbidity Urine pH Ur Specific [place] Urine Protein Urine Glucose (UA) Urine Ketones Urine Blood Urine Nitrite Urine Bilirubin Urine Urobilinogen Ur Leukocyte Esterase Urine WBC (Auto) Urine RBC (Auto) U Epithel Cells (Auto) Urine Mucus 06/07/16 09:14 WBC RBC Hgb Hct MCV MCH MCHC RDW Plt Count Lymph % (Auto) [place] % (Auto) Eos % (Auto) Baso % (Auto) Lymph # [place] # Eos # Baso # Seg Neutrophils % Seg Neutrophils # Sodium Potassium Chloride Carbon Dioxide Anion Gap BUN Creatinine Estimated GFR BUN/Creatinine Ratio Glucose Calcium Total Bilirubin AST ALT Alkaline Phosphatase Total Protein Albumin Albumin/Globulin Ratio Lipase HCG, Qual Urine Color Straw Urine Turbidity Clear Urine pH 5.0 Ur Specific [place] 1.012 Urine Protein <15 mg/dl Urine Glucose (UA) Neg Urine Ketones Neg Urine Blood Sm Urine Nitrite Neg Urine Bilirubin Neg Urine Urobilinogen < 2.0 Ur Leukocyte Esterase Neg Urine WBC (Auto) < 1.0 Urine RBC (Auto) 1.0 U Epithel Cells (Auto) 1.0 Urine Mucus Few Critical care attestation.: If time is entered above; I have spent that time in minutes in the direct care of this critically ill patient, excluding procedure time. ED Disposition Clinical Impression: Hydrosalpinx Abdominal pain Qualifiers: Abdominal location: left lower quadrant Qualified Code(s): R10.32 - Left lower quadrant pain Disposition: DISCHARGED TO HOME OR SELFCARE Is pt being admited?: No Does the pt Need Aspirin: No Condition: Stable Instructions: Abdominal Pain (ED) Additional Instructions: Follow-up with her electrical experimental mechanic at [place] as planned on the fourth. Return any acute change or problem. Rx for pain. 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
[2016-06-07 12:34] VITALS: BP 112/87
== END 2016-06-07 12:29 | disposition home or self-care (01) ==
LOC: ED 07:28
DX: N70.11 Chronic salpingitis (principal); R10.32 Left lower quadrant pain; Z72.0 Tobacco use
CPT/HCPCS: 36415; 80053; 81001; 83690; 84703; 85025; 99283; J7030

== ENCOUNTER 2018-05-08 01:45 | Emergency (ER) | payer OTHER ==
[2018-05-08 01:49] VITALS: BP 141/86
== END 2018-05-08 08:15 | disposition left against medical advice (07) ==
LOC: ED 01:45
DX: S06.0X9A Concussion with loss of consciousness of unspecified duration, initial encounter (principal); X58.XXXA Exposure to other specified factors, initial encounter; Y93.89 Activity, other specified; Y92.89 Other specified places as the place of occurrence of the external cause; Y99.8 Other external cause status; Z53.21 Procedure and treatment not carried out due to patient leaving prior to being seen by health care provider

== ENCOUNTER 2018-08-04 01:15 | Emergency (ER) | payer OTHER ==
[2018-08-04 01:39] VITALS: BP 126/77
[2018-08-04] MEDS ORDERED: IBUPROFEN PO ONE (03:01)
[2018-08-04] MEDS ORDERED: TRIMOX PO ONE (03:01)
[2018-08-04] MEDS ORDERED: DECADRON IV ONE (03:01)
--- NOTE | 2018-08-04 03:14 | Emergency Department Report ---
ED ENT HPI - General Chief complaint: Sore Throat Stated complaint: COUGH SORE THROAT Time Seen by Provider: 08/04/18 03:01 Source: patient Mode of arrival: Ambulatory Limitations: No Limitations - History of Present Illness Initial comments: pt is a 48 y/o aaf who presents for sore throat and cough for x 1 week pt denies fever no chills no n/v no cp no dizziness no lightheadedness. pt denies hx of bronchitis or asthma. complaint: sore throat Onset/Timin -: week(s) Location: throat Severity: moderate Severity scale (0 -10): 5 Quality: burning, sharp Consistency: constant Improves with: none Worsens with: swallowing Associated Symptoms: cough, pain with swallowing, sore throat. denies: fever, gum swelling, toothache, tinnitus, hearing loss, discharge from ear, rhinorrhea - Related Data Home Medications Medication Instructions Recorded Confirmed Last Taken Vit No.126/Iron/Folic 1 tab PO DAILY 09/09/13 05/26/16 09/07/13 [Classic Tablet] Vitamin B Complex Vit C No.4 1 tab PO DAILY 09/09/13 05/26/16 09/07/13 [Super B Complex] Previous Rx's Medication Instructions Recorded Last Taken Type Bisacodyl [Dulcolax suppos] 10 mg OR QDAY PRN #20 supp.rect 05/30/16 Unknown Rx Docusate Sodium [Colace] 100 mg PO BID #60 capsule 05/30/16 Unknown Rx Magnesium Hydroxide [Milk of 30 ml PO Q4H PRN #20 oral.liqd 05/30/16 Unknown Rx Magnesia] levoFLOXacin [Levaquin TAB] 750 mg PO QDAY #3 tablet 05/30/16 Unknown Rx metroNIDAZOLE [Flagyl TAB] 500 mg PO Q8HR #10 tablet 05/30/16 Unknown Rx HYDROcodone/APAP 7.5-325 [[place] 1 each PO Q6HR PRN #20 tablet 06/07/16 Unknown Rx 7.5/325] Amoxicillin [Trimox CAP] 500 mg PO Q8H 10 Days #30 capsule 08/04/18 Unknown Rx Benzonatate [Tessalon Perles] 100 mg PO Q8HR PRN #30 capsule 08/04/18 Unknown Rx Ibuprofen [Motrin 800 MG tab] 800 mg PO Q8HR PRN #30 tablet 08/04/18 Unknown Rx dexAMETHasone [Decadron] 4 mg PO Q12H 3 Days #6 tablet 08/04/18 Unknown Rx Allergies Allergy/AdvReac Type Severity Reaction Status Date / Time No Known Allergies Allergy Verified 06/07/16 08:07 ED Dental HPI - General Chief complaint: Sore Throat Stated complaint: COUGH SORE THROAT Time Seen by Provider: 08/04/18 03:01 Source: patient Mode of arrival: Ambulatory Limitations: No Limitations - Related Data Home Medications Medication Instructions Recorded Confirmed Last Taken Vit No.126/Iron/Folic 1 tab PO DAILY 09/09/13 05/26/16 09/07/13 [Classic Tablet] Vitamin B Complex Vit C No.4 1 tab PO DAILY 09/09/13 05/26/16 09/07/13 [Super B Complex] Previous Rx's Medication Instructions Recorded Last Taken Type Bisacodyl [Dulcolax suppos] 10 mg OR QDAY PRN #20 supp.rect 05/30/16 Unknown Rx Docusate Sodium [Colace] 100 mg PO BID #60 capsule 05/30/16 Unknown Rx Magnesium Hydroxide [Milk of 30 ml PO Q4H PRN #20 oral.liqd 05/30/16 Unknown Rx Magnesia] levoFLOXacin [Levaquin TAB] 750 mg PO QDAY #3 tablet 05/30/16 Unknown Rx metroNIDAZOLE [Flagyl TAB] 500 mg PO Q8HR #10 tablet 05/30/16 Unknown Rx HYDROcodone/APAP 7.5-325 [[place] 1 each PO Q6HR PRN #20 tablet 06/07/16 Unknown Rx 7.5/325] Amoxicillin [Trimox CAP] 500 mg PO Q8H 10 Days #30 capsule 08/04/18 Unknown Rx Benzonatate [Tessalon Perles] 100 mg PO Q8HR PRN #30 capsule 08/04/18 Unknown Rx Ibuprofen [Motrin 800 MG tab] 800 mg PO Q8HR PRN #30 tablet 08/04/18 Unknown Rx dexAMETHasone [Decadron] 4 mg PO Q12H 3 Days #6 tablet 08/04/18 Unknown Rx Allergies Allergy/AdvReac Type Severity Reaction Status Date / Time No Known Allergies Allergy Verified 06/07/16 08:07 ED Review of Systems ROS: Stated complaint: COUGH SORE THROAT Other details as noted in HPI Constitutional: denies: chills, fever Eyes: denies: eye pain, eye discharge, vision change ENT: throat pain. denies: ear pain, dental pain, hearing loss, epistaxis, congestion Respiratory: cough. denies: shortness of breath, wheezing Cardiovascular: denies: chest pain, palpitations Endocrine: no symptoms reported Gastrointestinal: denies: abdominal pain, nausea, vomiting, diarrhea Genitourinary: denies: urgency, dysuria, discharge Musculoskeletal: denies: back pain, joint swelling, arthralgia Skin: denies: rash, lesions Neurological: denies: headache, weakness, paresthesias Psychiatric: denies: anxiety, depression Hematological/Lymphatic: denies: easy bleeding, easy bruising ED Past Medical Hx - Past Medical History Previous Medical History?: No Hx Hypertension: No Hx Liver Disease: No Hx Renal Disease: No Hx Seizures: No Hx Asthma: No Hx COPD: No - Surgical History Past Surgical History?: Yes Additional Surgical History: right periorbital repair and right eye surgery. tubal - Social History Smoking Status: Former Smoker Substance Use Type: None - Medications Home Medications: Home Medications Medication Instructions Recorded Confirmed Last Taken Type Vit No.126/Iron/Folic 1 tab PO DAILY 09/09/13 05/26/16 09/07/13 History [Classic Tablet] Vitamin B Complex Vit C No.4 1 tab PO DAILY 09/09/13 05/26/16 09/07/13 History [Super B Complex] Bisacodyl [Dulcolax suppos] 10 mg OR QDAY PRN #20 supp.rect 05/30/16 Unknown Rx Docusate Sodium [Colace] 100 mg PO BID #60 capsule 05/30/16 Unknown Rx Magnesium Hydroxide [Milk of 30 ml PO Q4H PRN #20 oral.liqd 05/30/16 Unknown Rx Magnesia] levoFLOXacin [Levaquin TAB] 750 mg PO QDAY #3 tablet 05/30/16 Unknown Rx metroNIDAZOLE [Flagyl TAB] 500 mg PO Q8HR #10 tablet 05/30/16 Unknown Rx HYDROcodone/APAP 7.5-325 [[place] 1 each PO Q6HR PRN #20 tablet 06/07/16 Unknown Rx 7.5/325] Amoxicillin [Trimox CAP] 500 mg PO Q8H 10 Days #30 capsule 08/04/18 Unknown Rx Benzonatate [Tessalon Perles] 100 mg PO Q8HR PRN #30 capsule 08/04/18 Unknown Rx Ibuprofen [Motrin 800 MG tab] 800 mg PO Q8HR PRN #30 tablet 08/04/18 Unknown Rx dexAMETHasone [Decadron] 4 mg PO Q12H 3 Days #6 tablet 08/04/18 Unknown Rx ED Physical Exam - General Limitations: No Limitations General appearance: alert, in no apparent distress - Head Head exam: Present: atraumatic, normocephalic - Eye Eye exam: Present: normal appearance, PERRL, EOMI Pupils: Present: normal accommodation - ENT ENT exam: Present: mucous membranes moist, TM's normal bilaterally, normal external ear exam - Expanded ENT Exam Expanded Ear exam: Present: normal external inspection Mouth exam: Absent: trismus Throat exam: Positive: tonsillar erythema, tonsillomegaly, other (uvula midline mild white exudate no lesions no stridor no wheezing ). Negative: tonsillar exudate, R peritonsillar mass, L peritonsillar mass - Neck Neck exam: Present: normal inspection, full ROM. Absent: tenderness, lymphadenopathy, thyromegaly - Expanded Neck Exam Expanded Neck exam: Absent: tenderness, midline deformity, anterior neck swelling, thyroid mass, carotid bruit, tracheal deviation - Respiratory Respiratory exam: Present: normal lung sounds bilaterally. Absent: respiratory distress, wheezes, stridor, chest wall tenderness - Cardiovascular Cardiovascular Exam: Present: regular rate, normal rhythm, normal heart sounds. Absent: systolic murmur, diastolic murmur, rubs, gallop - GI/Abdominal GI/Abdominal exam: Present: soft, normal bowel sounds. Absent: distended, tenderness, guarding, rebound, rigid, bruit, hernia - Rectal Rectal exam: Present: deferred - Extremities Exam Extremities exam: Present: normal inspection, full ROM, normal capillary refill. Absent: tenderness, pedal edema, joint swelling, calf tenderness - Back Exam Back exam: Present: normal inspection, full ROM. Absent: tenderness, CVA tenderness (R), CVA tenderness (L), muscle spasm, paraspinal tenderness, rash noted - Neurological Exam Neurological exam: Present: alert, oriented X3, CN II-XII intact, normal gait, reflexes normal. Absent: motor sensory deficit - Psychiatric Psychiatric exam: Present: normal affect, normal mood - Skin Skin exam: Present: warm, dry, intact, normal color. Absent: rash ED Course Vital Signs 08/04/18 01:29 Temperature 98.2 F Pulse Rate 70 Respiratory 18 Rate Blood Pressure 126/77 O2 Sat by Pulse 98 Oximetry ED Medical Decision Making - Medical Decision Making this is pharyngitis there is no fever no peritonsilar ascess mild white exuate no lesion no wheezing or stridor, Lungs are clear throughout, plan tx for pharyngitis , URI , pt will follow up wtih pcp in 2-3 dys , return to ed if symptoms worsen pt verbalized agreement and understanding of discharge plan. Critical care attestation.: If time is entered above; I have spent that time in minutes in the direct care of this critically ill patient, excluding procedure time. ED Disposition Clinical Impression: Pharyngitis Qualifiers: Pharyngitis/tonsillitis etiology: unspecified etiology Qualified Code(s): J02.9 - Acute pharyngitis, unspecified Disposition: TO HOME OR SELFCARE Is pt being admited?: No Does the pt Need Aspirin: No Condition: Stable Instructions: Pharyngitis (ED), Upper Respiratory Infection (ED) Prescriptions: dexAMETHasone [Decadron] 4 mg PO Q12H 3 Days #6 tablet Ibuprofen [Motrin 800 MG tab] 800 mg PO Q8HR PRN #30 tablet PRN Reason: pain Benzonatate [Tessalon Perles] 100 mg PO Q8HR PRN #30 capsule PRN Reason: Cough Amoxicillin [Trimox CAP] 500 mg PO Q8H 10 Days #30 capsule Referrals: PATRICIA TORREZ MD [Primary Care Provider] - 3-5 Days Forms: Work/School Release Form(ED) Time of Disposition: 03:26
== END 2018-08-04 03:38 | disposition home or self-care (01) ==
LOC: ED 01:15
DX: J02.9 Acute pharyngitis, unspecified (principal); Z98.890 Other specified postprocedural states; Z98.51 Tubal ligation status; Z87.891 Personal history of nicotine dependence; Z79.899 Other long term (current) drug therapy
CPT/HCPCS: 96374; 99282; J1100

== ENCOUNTER 2018-12-28 13:17 | Outpatient (CLI) | payer OTHER ==
--- NOTE | 2018-12-31 13:32 | Mammography Report ---
DIGITAL SCREENING MAMMOGRAM WITH CAD, 12/28/2018 INDICATION: Routine screening mammography. TECHNIQUE: Digital bilateral 2D mammography was obtained in the craniocaudal and mediolateral obliq ue projections. This examination was interpreted with the benefit of Computer-Aided Detection analysi s. COMPARISON: 12/27/2017 FINDINGS: Breast Density: The breasts are heterogeneously dense, which may obscure small masses. There is no evidence of dominant mass, suspicious calcifications or architectural distortion in eithe r breast. IMPRESSION: No mammographic evidence of malignancy. Follow up recommendation: Routine yearly BI-RADS Category 1: Negative. A "normal" or negative report should not discourage follow up or biopsy of a clinically significant f inding. A written summary of these findings will be mailed to the patient. The patient will be entered into a mammography reporting system which will generate a reminder letter for the patient's next appointmen t at the appropriate interval. The [employer] recommends yearly mammograms starting at age 40 and continuing as l carmita as a woman is in good health. Breast MRI is recommended for women with an approximate 20-25% or greater lifetime risk of breast cancer, including women with a strong family history of breast or [place] cancer or who have been treated for Hodgkin's disease. Signer Name: Maikol Berg MD Signed: 12/31/2018 1:27 PM Workstation Name: [id number]
== END 2018-12-28 13:18 | disposition home or self-care (01) ==
LOC: MAMMO 13:17
PROVIDERS: ATTEND Internal Medicine
DX: Z12.31 Encounter for screening mammogram for malignant neoplasm of breast (principal)
CPT/HCPCS: 77067

== ENCOUNTER 2020-07-23 12:46 | Outpatient (CLI) | payer OTHER ==
--- NOTE | 2020-07-23 17:55 | Mammography Report ---
DIGITAL SCREENING MAMMOGRAM WITH CAD, 07/23/2020 INDICATION: Routine screening mammography. TECHNIQUE: Digital bilateral 2D mammography was obtained in the craniocaudal and mediolateral obliq ue projections. This examination was interpreted with the benefit of Computer-Aided Detection analysi s. COMPARISON: 12/28/2018. FINDINGS: Breast Density: The breasts are heterogeneously dense, which may obscure small masses. There is no evidence of dominant mass, suspicious calcifications or architectural distortion in eithe r breast. IMPRESSION: Follow up recommendation: Routine yearly BI-RADS Category 1: Negative. A "normal" or negative report should not discourage follow up or biopsy of a clinically significant f inding. A written summary of these findings will be mailed to the patient. The patient will be entered into a mammography reporting system which will generate a reminder letter for the patient's next appointmen t at the appropriate interval. The [employer] recommends yearly mammograms starting at age 40 and continuing as l carmita as a woman is in good health. Breast MRI is recommended for women with an approximate 20-25% or greater lifetime risk of breast cancer, including women with a strong family history of breast or [place] cancer or who have been treated for Hodgkin's disease. Signer Name: Pablo Poe MD Signed: 07/23/2020 5:51 PM Workstation Name: [id number]
== END 2020-07-23 12:47 | disposition home or self-care (01) ==
LOC: MAMMO 12:46
PROVIDERS: ATTEND Clinical Nurse Specialist Adult Health
DX: Z12.31 Encounter for screening mammogram for malignant neoplasm of breast (principal); N64.89 Other specified disorders of breast
CPT/HCPCS: 77067

== ENCOUNTER 2021-09-09 11:15 | Outpatient (CLI) | payer OTHER ==
--- NOTE | 2021-09-12 16:55 | Mammography Report ---
DIGITAL SCREENING MAMMOGRAM WITH CAD, 09/09/2021 CLINICAL INFORMATION / INDICATION: Routine screening mammography. TECHNIQUE: Digital bilateral 2D mammography was obtained in the craniocaudal and mediolateral obliqu e projections. This examination was interpreted with the benefit of Computer-Aided Detection analysis . COMPARISON: 07/23/2020, 12/28/2018 FINDINGS: Breast Density: The breasts are heterogeneously dense, which may obscure small masses. No dominant mass, suspicious calcifications, or architectural distortion in either breast. There has been no significant interval change. IMPRESSION: No mammographic evidence of malignancy. Follow up recommendation: Routine yearly screening mammogram. BI-RADS Category 1: NEGATIVE A "normal" or negative report should not discourage follow up or biopsy of a clinically significant f inding. A written summary of these findings will be mailed to the patient. The patient will be entered into a mammography reporting system which will generate a reminder letter for the patient's next appointmen t at the appropriate interval. The [employer] recommends yearly mammograms starting at age 40 and continuing as l carmita as a woman is in good health. Breast MRI is recommended for women with an approximate 20-25% or greater lifetime risk of breast cancer, including women with a strong family history of breast or [place] cancer or who have been treated for Hodgkin's disease. Signer Name: Esteban Yadav MD Signed: 09/12/2021 4:50 PM Workstation Name: [id number]
== END 2021-09-09 11:16 | disposition home or self-care (01) ==
LOC: MAMMO 11:15
PROVIDERS: ATTEND Physician Assistant
DX: Z12.31 Encounter for screening mammogram for malignant neoplasm of breast (principal)
CPT/HCPCS: 77067